=== PATIENT | female | born 1970 | race Caucasian/White ===

== ENCOUNTER 2019-11-10 06:31 | Day surgery (SDC) | payer OTHER ==
[~2019-11-10] VITALS: Ht 152.4 cm; Wt 47.6 kg
[~2019-11-10 06:31] MED LIST: ESTRACE1 MG PO; FLEXERIL PO
[2019-11-10 09:01] VITALS: BP 108/79
[2019-11-10 09:42] VITALS: BP 108/79
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
== END 2019-11-10 12:05 | disposition home or self-care (01) ==
LOC: TBA 06:31 → OR 06:31
PROVIDERS: ATTEND Orthopaedic Surgery Sports Medicine
DX: S73.101A Unspecified sprain of right hip, initial encounter (principal); M25.851 Other specified joint disorders, right hip; M25.551 Pain in right hip; Z98.890 Other specified postprocedural states; Z79.899 Other long term (current) drug therapy; Z90.49 Acquired absence of other specified parts of digestive tract; Z90.710 Acquired absence of both cervix and uterus; Z11.59 Encounter for screening for other viral diseases; X58.XXXA Exposure to other specified factors, initial encounter; Y93.89 Activity, other specified; Y92.89 Other specified places as the place of occurrence of the external cause; Y99.8 Other external cause status
CPT/HCPCS: 50010; 50101; 50386; 51320; 51538; 52001; 52282; 52304; 52313; 56524; 56527; 57092; 57103; 58108; 58109; 62110; 62900; 70005